=== PATIENT | female | born 1950 | race Caucasian/White ===

== ENCOUNTER → 2018-12-29 | Outpatient (CLI) | payer MEDICARE, BC ==
[~2018-12-29] MED LIST: ACEBUTCAFT PO; ALPR1; AMIT50; ASPI81EC; CELE200; CHOL10002; Calcarb 600 W-1 EACH PO; FISH1000 PO; FURO20 PO; GABA300 PO; LEVSOD100; LISI5 PO; LORA1 PO; MELO7.5 PO; METF500 PO; METH10 PO; MULVITA; Metoprolol Succ25 MG PO; OMEP20ER PO; OXYC5; Percocet 5-3251 EACH PO; SERT100; TIZANIDINE HCL2 MG; TRAZ100; VENL25 PO; Woman's Laxative5 MG PO
== END | disposition home or self-care (01) ==
LOC: LAB SHORT 11:03 → LAB EV 11:03
DX: L08.9 Local infection of the skin and subcutaneous tissue, unspecified (principal)
CPT/HCPCS: 87070; 87075; 87205

== ENCOUNTER → 2019-05-17 | Outpatient (CLI) | payer MEDICARE, BC ==
[2019-05-17 15:45] LABS: Source, Urine Clean Catch
[2019-05-17 19:07] LABS: Bilirubin, Urine Neg (Neg); Blood, Urine Neg (Neg); Glucose Qualitative, Urine Neg (Neg); Ketones, Urine Neg (Neg); Leukocyte Esterase, Urine Neg (Neg); Nitrite, Urine Neg (Neg); Protein, Urine Neg (Neg); Urobilinogen, Urine NORM (Normal)
[2019-05-17 19:12] LABS: Appearance, Urine Clear (Clear); Color, Urine Pale Yellow (P-Yellow)
[2019-05-17 19:36] LABS: Creatinine, Urine Random 68.4 mg/dL (27.00-270.00)
[2019-05-17 19:40] LABS: Microalbumin, Random Urine 6.84 mg/L (0.000-20.000)
== END | disposition home or self-care (01) ==
LOC: LAB 15:26 → LAB SHORT 15:26
PROVIDERS: Nurse Practitioner Family
DX: N18.3 Chronic kidney disease, stage 3 (moderate) (principal)
CPT/HCPCS: 81003; 82043; 82570

== ENCOUNTER → 2019-11-19 | Outpatient (CLI) | payer MEDICARE, BC | LOC: LAB 07:42 → LAB SHORT 07:42 | DX: D48.5 Neoplasm of uncertain behavior of skin (principal); L30.8 Other specified dermatitis | CPT/HCPCS: 88312 ==

== ENCOUNTER → 2020-03-23 | Outpatient (CLI) | payer MEDICARE, BC ==
[2020-03-23 11:22] LABS: Microalbumin, Urine Quant. <5.000 mg/L (0.000-20.000); Protein, Urine Quantitative <5.0 mg/dL (0.0-11.9)
== END | disposition home or self-care (01) ==
LOC: LAB SHORT 09:05 → LAB 09:05
PROVIDERS: Internal Medicine Nephrology
DX: N18.30 Chronic kidney disease, stage 3 unspecified (principal); D63.1 Anemia in chronic kidney disease; N25.81 Secondary hyperparathyroidism of renal origin; E55.9 Vitamin D deficiency, unspecified; E78.00 Pure hypercholesterolemia, unspecified; R76.9 Abnormal immunological finding in serum, unspecified; R94.5 Abnormal results of liver function studies; R94.6 Abnormal results of thyroid function studies; D51.8 Other vitamin B12 deficiency anemias; D52.8 Other folate deficiency anemias
CPT/HCPCS: 81050; 82043; 82570; 84156

== ENCOUNTER → 2020-05-18 | Outpatient (CLI) | payer MEDICARE, BC ==
[~2020-05-18] MED LIST changes: +Aspir 8181 MG PO; +DESV50 PO; +EUTHYROX112 MCG PO
[2020-05-18 19:45] LABS: Microalb/Creat Ratio UR, Rand 8.777 mg/g (0.000-30.000); Microalbumin, Random Urine 12.2 mg/L (0.000-20.000)
== END | disposition home or self-care (01) ==
LOC: LAB 17:08
PROVIDERS: Nurse Practitioner Family
DX: E11.40 Type 2 diabetes mellitus with diabetic neuropathy, unspecified (principal)
CPT/HCPCS: 82043; 82570

== ENCOUNTER 2022-07-19 09:27 | Emergency (ER) | payer MEDICARE, BC ==
[~2022-07-19] VITALS: Ht 188 cm; Wt 127.0 kg
[2022-07-19 09:50] LABS: BASOPHILS ABSOLUTE AUTO 0.06 K/mm3 (0.00-0.23); BASOPHILS PERCENT AUTO 1 % (0-2); EOSINOPHILS ABSOLUTE AUTO 0.02 K/mm3 (0.00-0.68); EOSINOPHILS PERCENT AUTO 0 % (0-6); Hematocrit 43.8 % (33.0-51.0); Hemoglobin 14.3 g/dL (11.5-16.0); IMMATURE GRAN PERCENT AUTO 1 % (0-1); LYMPHOCYTES ABSOLUTE AUTO 0.86 K/mm3 (0.84-5.20); LYMPHOCYTES PERCENT AUTO 10 % (21-46); MONOCYTES ABSOLUTE AUTO 0.35 K/mm3 (0.16-1.47); MONOCYTES PERCENT AUTO 4 % (4-13); Mean Corpuscular HGB 24.9 pg (26.0-34.0); Mean Corpuscular HGB Conc 32.6 g/dL (31.5-36.5); Mean Corpuscular Volume 76 fL (80-100); Mean Platelet Volume 8.5 fL (9.1-12.4); NEUTROPHILS ABSOLUTE AUTO 7.44 K/mm3 (1.96-9.15); NEUTROPHILS PERCENT AUTO 84 % (41-73); Platelet Count 349 K/mm3 (150-400); RDW Coefficient Variation 16.6 % (11.7-14.2); RDW Standard Deviation 45.3 fL (35.1-46.3); Red Blood Cell Count 5.75 M/mm3 (3.80-5.20); White Blood Cell Count 8.83 K/mm3 (4.00-11.30)
[2022-07-19] MEDS ORDERED: XANAX0.5 MG PO (09:58)
[2022-07-19 10:08] LABS: Albumin, Blood 3.9 g/dL (3.4-5.0); Bilirubin, Total 0.9 mg/dL (0.1-1.0); Bun/Creatinine Ratio 14.9 (12.0-20.0); Calcium, Blood 9.8 mg/dL (8.5-10.1); Creatinine, Blood 0.87 mg/dL (0.40-1.00); Globulin, Blood 3.9 g/dL (2.2-4.0); Potassium, Blood 3.5 mmol/L (3.5-5.5); Total Protein, Blood 7.8 g/dL (6.4-8.2)
[2022-07-19 10:15] LABS: Source, Urine Straight Cath
[2022-07-19 10:20] LABS: Appearance, Urine Clear (Clear); Bilirubin, Urine Neg (Neg); Blood, Urine Neg (Neg); Color, Urine Yellow (P-Yellow); Glucose Qualitative, Urine Neg (Neg); Ketones, Urine Neg (Neg); Leukocyte Esterase, Urine Neg (Neg); Nitrite, Urine Neg (Neg); Protein, Urine 1+ (Neg); Urobilinogen, Urine NORM (Normal)
== END 2022-07-19 10:50 | disposition home or self-care (01) ==
LOC: ER 09:27
PROVIDERS: Emergency Medicine
DX: R40.4 Transient alteration of awareness (principal); T48.4X5A Adverse effect of expectorants, initial encounter; R73.03 Prediabetes; I10 Essential (primary) hypertension; E03.9 Hypothyroidism, unspecified; G47.33 Obstructive sleep apnea (adult) (pediatric); Z88.8 Allergy status to other drugs, medicaments and biological substances; Z79.899 Other long term (current) drug therapy; Z87.891 Personal history of nicotine dependence
CPT/HCPCS: 36415; 70450; 80053; 85025; 93005; 93010; 99285-25; P9612

== ENCOUNTER 2022-09-17 08:21 | Emergency (ER) | payer MEDICARE, BC ==
[~2022-09-17] VITALS: Ht 182.9 cm; Wt 145.6 kg
[~2022-09-17 08:21] MED LIST changes: +XANAX0.5 MG PO
[2022-09-17] MEDS ORDERED: LYRICA200 M1 (08:41)
[2022-09-17 09:14] LABS: BASOPHILS ABSOLUTE AUTO 0.07 K/mm3 (0.00-0.23); BASOPHILS PERCENT AUTO 1 % (0-2); EOSINOPHILS ABSOLUTE AUTO 0.16 K/mm3 (0.00-0.68); EOSINOPHILS PERCENT AUTO 2 % (0-6); Hematocrit 39.6 % (33.0-51.0); Hemoglobin 12.5 g/dL (11.5-16.0); IMMATURE GRAN ABSOLUTE AUTO 0.03 K/mm3 (0.00-0.10); IMMATURE GRAN PERCENT AUTO 0 % (0-1); LYMPHOCYTES ABSOLUTE AUTO 1.13 K/mm3 (0.84-5.20); LYMPHOCYTES PERCENT AUTO 16 % (21-46); MONOCYTES ABSOLUTE AUTO 0.56 K/mm3 (0.16-1.47); MONOCYTES PERCENT AUTO 8 % (4-13); Mean Corpuscular HGB 25.5 pg (26.0-34.0); Mean Corpuscular HGB Conc 31.6 g/dL (31.5-36.5); Mean Corpuscular Volume 81 fL (80-100); Mean Platelet Volume 8.9 fL (9.1-12.4); NEUTROPHILS ABSOLUTE AUTO 4.94 K/mm3 (1.96-9.15); NEUTROPHILS PERCENT AUTO 72 % (41-73); Platelet Count 325 K/mm3 (150-400); RDW Coefficient Variation 14.5 % (11.7-14.2); RDW Standard Deviation 42.5 fL (35.1-46.3); Red Blood Cell Count 4.91 M/mm3 (3.80-5.20); White Blood Cell Count 6.89 K/mm3 (4.00-11.30)
[2022-09-17 09:30] LABS: Albumin, Blood 3.9 g/dL (3.4-5.0); Albumin/Globulin Ratio 1.1 (0.8-1.8); Bilirubin, Total 0.3 mg/dL (0.1-1.0); Bun/Creatinine Ratio 18.1 (12.0-20.0); Calcium, Blood 9.7 mg/dL (8.5-10.1); Creatinine, Blood 0.99 mg/dL (0.40-1.00); Globulin, Blood 3.4 g/dL (2.2-4.0); Total Protein, Blood 7.3 g/dL (6.4-8.2)
[2022-09-17] MEDS ORDERED: MECL25 PO (10:39)
[2022-09-17 11:00] VITALS: BP 163/81
== END 2022-09-17 11:12 | disposition home or self-care (01) ==
LOC: ER 08:21
PROVIDERS: Student in an Organized Health Care Education/Training Program
DX: R42 Dizziness and giddiness (principal); Z88.8 Allergy status to other drugs, medicaments and biological substances; Z79.899 Other long term (current) drug therapy; Z79.84 Long term (current) use of oral hypoglycemic drugs; Z87.891 Personal history of nicotine dependence; K21.9 Gastro-esophageal reflux disease without esophagitis; I10 Essential (primary) hypertension; E78.00 Pure hypercholesterolemia, unspecified; G47.33 Obstructive sleep apnea (adult) (pediatric); E03.9 Hypothyroidism, unspecified
CPT/HCPCS: 36415; 80053; 83690; 85025; 93005; 93010; 99284-25

== ENCOUNTER → 2023-04-18 | Outpatient (CLI) | payer MEDICARE, BC ==
[~2023-04-18] MED LIST changes: +LYRICA200 M1; +MECL25 PO
== END ==
LOC: LAB 07:37 → LAB SHORT 07:37
DX: B35.1 Tinea unguium (principal); L60.2 Onychogryphosis
CPT/HCPCS: 88305; 88312

== ENCOUNTER 2023-07-19 15:38 | Emergency (ER) | payer MEDICARE, BC ==
[~2023-07-19] VITALS: Ht 180.3 cm; Wt 113.4 kg
[2023-07-19 16:01] VITALS: BP 151/74
== END 2023-07-19 18:45 | disposition home or self-care (01) ==
LOC: ER 15:38
DX: S73.102A Unspecified sprain of left hip, initial encounter (principal); S63.92XA Sprain of unspecified part of left wrist and hand, initial encounter; S80.02XA Contusion of left knee, initial encounter; S09.90XA Unspecified injury of head, initial encounter; Z87.891 Personal history of nicotine dependence; I10 Essential (primary) hypertension; E78.00 Pure hypercholesterolemia, unspecified; G47.33 Obstructive sleep apnea (adult) (pediatric); E03.9 Hypothyroidism, unspecified; E78.1 Pure hyperglyceridemia; Z96.642 Presence of left artificial hip joint; K21.9 Gastro-esophageal reflux disease without esophagitis; Z79.84 Long term (current) use of oral hypoglycemic drugs; Z79.899 Other long term (current) drug therapy; Z88.8 Allergy status to other drugs, medicaments and biological substances; W08.XXXA Fall from other furniture, initial encounter
CPT/HCPCS: 70450; 73110; 73502; 73562-LT; 99284-25

== ENCOUNTER 2023-09-09 19:02 | Emergency (ER) | payer MEDICARE, BC ==
[~2023-09-09] VITALS: Ht 182.9 cm; Wt 118.8 kg
[2023-09-09 19:51] LABS: BASOPHILS ABSOLUTE AUTO 0.04 K/mm3 (0.00-0.23); BASOPHILS PERCENT AUTO 0 % (0-2); EOSINOPHILS ABSOLUTE AUTO 0.11 K/mm3 (0.00-0.68); EOSINOPHILS PERCENT AUTO 1 % (0-6); Hematocrit 37.9 % (33.0-51.0); Hemoglobin 12.5 g/dL (11.5-16.0); IMMATURE GRAN ABSOLUTE AUTO 0.05 K/mm3 (0.00-0.10); IMMATURE GRAN PERCENT AUTO 1 % (0-1); LYMPHOCYTES ABSOLUTE AUTO 1.43 K/mm3 (0.84-5.20); LYMPHOCYTES PERCENT AUTO 13 % (21-46); MONOCYTES ABSOLUTE AUTO 0.69 K/mm3 (0.16-1.47); MONOCYTES PERCENT AUTO 6 % (4-13); Mean Corpuscular HGB 27.1 pg (26.0-34.0); Mean Corpuscular Volume 82 fL (80-100); Mean Platelet Volume 8.6 fL (9.1-12.4); NEUTROPHILS ABSOLUTE AUTO 8.67 K/mm3 (1.96-9.15); NEUTROPHILS PERCENT AUTO 79 % (41-73); Platelet Count 275 K/mm3 (150-400); RDW Standard Deviation 41.7 fL (35.1-46.3); Red Blood Cell Count 4.61 M/mm3 (3.80-5.20); White Blood Cell Count 10.99 K/mm3 (4.00-11.30)
[2023-09-09 20:19] LABS: Albumin, Blood 3.4 g/dL (3.4-5.0); Albumin/Globulin Ratio 0.9 (0.8-1.8); Bilirubin, Total 0.5 mg/dL (0.1-1.0); Bun/Creatinine Ratio 23.6 (12.0-20.0); Calcium, Blood 9.2 mg/dL (8.5-10.1); Creatinine, Blood 1.23 mg/dL (0.40-1.00); Globulin, Blood 3.7 g/dL (2.2-4.0); Potassium, Blood 4.3 mmol/L (3.5-5.5); Total Protein, Blood 7.1 g/dL (6.4-8.2)
[2023-09-09] MEDS ORDERED: OXYC10TA19 PO (21:49)
[2023-09-09] MEDS ORDERED: Methocarbamol750 MG PO (21:49)
[2023-09-09] MEDS ORDERED: DESVENLAFAXINE100 M3 PO (21:50)
[2023-09-09] MEDS ORDERED: ABILIFY5 MG PO (21:51)
[2023-09-09] MEDS ORDERED: EUTHYROX100 MC1 PO (21:51)
[2023-09-09] MEDS ORDERED: METOPROLOL SUCC25 MG PO (21:51)
[2023-09-09] MEDS ORDERED: DEXTROAMPHETAMI10 M5 PO (21:52)
[2023-09-09] MEDS ORDERED: FUROSEMIDE20 MG PO (21:53)
[2023-09-09] MEDS ORDERED: POTA8 PO (21:54)
[2023-09-09] MEDS ORDERED: Cefepime HCl 2,000 MG in NS 100 ML IV ONE (22:55)
[2023-09-09] MEDS ORDERED: CEPH500 PO (23:24)
[2023-09-10 00:30] VITALS: BP 128/69
== END 2023-09-10 01:00 | disposition home or self-care (01) ==
LOC: ER 19:02
PROVIDERS: Nurse Practitioner
DX: E11.628 Type 2 diabetes mellitus with other skin complications (principal); S90.421A Blister (nonthermal), right great toe, initial encounter; L08.9 Local infection of the skin and subcutaneous tissue, unspecified; Z68.35 Body mass index [BMI] 35.0-35.9, adult; I10 Essential (primary) hypertension; E78.00 Pure hypercholesterolemia, unspecified; E03.9 Hypothyroidism, unspecified; Z88.8 Allergy status to other drugs, medicaments and biological substances; Z87.891 Personal history of nicotine dependence; Z79.899 Other long term (current) drug therapy; Z79.84 Long term (current) use of oral hypoglycemic drugs; K21.9 Gastro-esophageal reflux disease without esophagitis
CPT/HCPCS: 36415; 73630; 80053; 83605; 85025; 87040; 96365; 99283-25; J0692

== ENCOUNTER → 2023-09-19 | Outpatient (CLI) | payer MEDICARE, BC ==
[~2023-09-19] MED LIST changes: +ABILIFY5 MG PO; +CEPH500 PO; +DESVENLAFAXINE100 M3 PO; +DEXTROAMPHETAMI10 M5 PO; +EUTHYROX100 MC1 PO; +FUROSEMIDE20 MG PO; +METOPROLOL SUCC25 MG PO; +Methocarbamol750 MG PO; +OXYC10TA19 PO; +POTA8 PO
== END ==
LOC: LAB 21:28 → LAB SHORT 21:28
DX: E11.621 Type 2 diabetes mellitus with foot ulcer (principal); L97.512 Non-pressure chronic ulcer of other part of right foot with fat layer exposed
CPT/HCPCS: 87070; 87205

== ENCOUNTER → 2025-03-18 | Outpatient (CLI) | payer MEDICARE, OTHER ==
[2025-03-19 09:35] LABS: CHOL/HDL RATIO 5.0; Cholesterol 218 mg/dL (50-200); HDL Cholesterol 44 mg/dL (>39); LDL/HDL RATIO 2.7; Low Density Lipoprotein Chol 119 mg/dL (0-110); Thyroid Stimulating Hormone 1.580 uIU/mL (0.360-4.800); Triglycerides 273 mg/dL (30-160); Very Low Density Lipoprot Chol 54 mg/dL (6-32)
== END | disposition home or self-care (01) ==
LOC: LAB 10:25 → LAB SHORT 10:25
PROVIDERS: Student in an Organized Health Care Education/Training Program
DX: E11.40 Type 2 diabetes mellitus with diabetic neuropathy, unspecified (principal); E03.9 Hypothyroidism, unspecified; E78.2 Mixed hyperlipidemia
CPT/HCPCS: 80061; 83036; 84443